=== PATIENT | male | born 1975 | race Caucasian/White ===

== ENCOUNTER 2016-10-20 16:16 | Inpatient (IN) | payer BC, OTHER ==
[~2016-10-20] VITALS: Ht 167.6 cm; Wt 122.5 kg
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
[2016-10-20 16:45] LABS: BASOPHIL # 0.1 K/uL (0.0-0.2); BASOPHIL % 0.4 %; EOSINOPHIL % 0.2 %; HEMATOCRIT 41.4 % (37.0-53.0); HEMOGLOBIN 13.7 g/dL (12.0-17.0); IMMATURE GRANULOCYTE # 0.2 K/uL (0.0-0.3); IMMATURE GRANULOCYTE % 0.7 %; LYMPHOCYTE # 2.4 K/uL (0.8-4.0); LYMPHOCYTE % 10.9 %; MCHC 33.1 gm/dL (32.0-36.5); MCV 87.7 fl (83.0-98.0); MONOCYTE # 1.4 K/uL (0.0-1.0); MONOCYTE % 6.4 %; MPV 11.3 fl (9.4-12.4); NEUTROPHIL # (ANC) 17.8 K/uL (1.4-9.0); NEUTROPHIL % 81.4 %; NRBC % 0 /100WBC (0-0.00); PLATELET COUNT 322 K/uL (150-450); RBC 4.72 M/uL (4.00-6.00); RDW-CV 12.9 % (11.9-14.6)
[2016-10-20 16:47] LABS: WBC 21.8 K/uL (4.0-11.0)
[2016-10-20 16:58] LABS: PROTIME 10.7 SECONDS (9.6-11.1); PTT 23 SECONDS (25-32)
[2016-10-20 17:02] LABS: ALBUMIN 3.9 gm/dL (3.5-5.0); BLOOD UREA NITROGEN 19 mg/dL (6-24); CALCIUM 8.3 mg/dL (8.5-10.5); CHLORIDE 106 mMol/L (96-110); CO2 28 mMol/L (22-32); CREATININE 1.2 mg/dL (0.6-1.3); ESTIMATED GFR (MDRD EQUATION) > 60; PHOSPHORUS 3.5 mg/dL (2.5-4.9); SODIUM 143 mMol/L (135-145)
[2016-10-20 17:10] LABS: ANION GAP 13.5 (10.0-19.0); POTASSIUM 4.5 mMol/L (3.7-5.1)
[2016-10-20 18:04] LABS: BILIRUBIN URINE NEGATIVE (NEGATIVE); BLOOD URINE 150 /UL (NEGATIVE); COLOR URINE YELLOW (YELLOW); GLUCOSE URINE NEGATIVE (NEGATIVE); KETONE URINE NEGATIVE (NEGATIVE); LEUKOCYTES URINE 25 /UL (NEGATIVE); NITRITE URINE NEGATIVE (NEGATIVE); PROTEIN URINE 30 mg/dL (NEGATIVE); SPEC GRAVITY URINE 1.015 (1.003-1.035); TURBIDITY URINE CLEAR (CLEAR); UROBILINOGEN URINE 1 mg/dL (NORMAL)
[2016-10-20 18:13] LABS: EPITHELIAL URINE 0-2 #/HPF (NEGATIVE)
[2016-10-20 18:14] LABS: AMORPHOUS URINE 1+ (NEGATIVE); BACTERIA URINE MODERATE (NEGATIVE); MUCUS URINE 2+ (NEGATIVE)
[2016-10-20] MEDS ORDERED: PRINIVIL OR ZES10 MG PO (20:44)
[2016-10-20] MEDS ORDERED: ASCORBIC ACID500 MG PO (20:45)
[2016-10-20] MEDS ORDERED: IMODIUM2 MG (20:45)
[2016-10-20] MEDS ORDERED: TYLENOL325 MG PO (20:45)
[2016-10-20] MEDS ORDERED: ROBAXIN750 MG PO (20:46)
[2016-10-20] MEDS ORDERED: ZYRTEC10 MG PO (20:46)
[2016-10-20] MEDS ORDERED: PERCOCET 7.5-31 EACH PO (20:47)
[2016-10-20] MEDS ORDERED: TYLENOL PM EX-1 EACH PO (20:48)
[2016-10-21 03:49] LABS: BASOPHIL % 0.2 %; EOSINOPHIL % 0.1 %; HEMATOCRIT 38.4 % (37.0-53.0); HEMOGLOBIN 12.7 g/dL (12.0-17.0); IMMATURE GRANULOCYTE % 0.3 %; LYMPHOCYTE # 1.7 K/uL (0.8-4.0); LYMPHOCYTE % 10.7 %; MCH 28.9 pg (27.0-34.0); MCHC 33.1 gm/dL (32.0-36.5); MCV 87.5 fl (83.0-98.0); MONOCYTE # 1.4 K/uL (0.0-1.0); MONOCYTE % 9.1 %; MPV 11.9 fl (9.4-12.4); NEUTROPHIL # (ANC) 12.6 K/uL (1.4-9.0); NEUTROPHIL % 79.6 %; NRBC % 0 /100WBC (0-0.00); RBC 4.39 M/uL (4.00-6.00); RDW-CV 13.1 % (11.9-14.6); WBC 15.8 K/uL (4.0-11.0)
[2016-10-21 03:52] LABS: PLATELET COUNT 249 K/uL (150-450)
[2016-10-21 04:08] LABS: ALBUMIN 3.5 gm/dL (3.5-5.0); ALK PHOS 46 IU/L (33-138); ALT 70 IU/L (12-78); BLOOD UREA NITROGEN 15 mg/dL (6-24); CALCIUM 8.3 mg/dL (8.5-10.5); CHLORIDE 107 mMol/L (96-110); CO2 24 mMol/L (22-32); CREATININE 0.9 mg/dL (0.6-1.3); ESTIMATED GFR (MDRD EQUATION) > 60; SODIUM 141 mMol/L (135-145); TOTAL BILIRUBIN 0.3 mg/dL (0.0-1.5); TOTAL PROTEIN 6.8 g/dL (6.0-8.4)
[2016-10-21 04:18] LABS: ANION GAP 14.5 (10.0-19.0); AST 87 IU/L (10-40); POTASSIUM 4.5 mMol/L (3.7-5.1)
[2016-10-23 03:47] LABS: BASOPHIL % 0.3 %; EOSINOPHIL % 0.1 %; HEMATOCRIT 35.5 % (37.0-53.0); HEMOGLOBIN 11.6 g/dL (12.0-17.0); IMMATURE GRANULOCYTE % 0.3 %; LYMPHOCYTE # 0.9 K/uL (0.8-4.0); LYMPHOCYTE % 7.8 %; MCH 28.6 pg (27.0-34.0); MCHC 32.7 gm/dL (32.0-36.5); MCV 87.7 fl (83.0-98.0); MONOCYTE # 0.8 K/uL (0.0-1.0); MONOCYTE % 6.9 %; MPV 11.4 fl (9.4-12.4); NEUTROPHIL % 84.6 %; NRBC % 0 /100WBC (0-0.00); PLATELET COUNT 250 K/uL (150-450); RBC 4.05 M/uL (4.00-6.00); RDW-CV 12.8 % (11.9-14.6); WBC 11.9 K/uL (4.0-11.0)
[2016-10-23 04:02] LABS: ALBUMIN 3.2 gm/dL (3.5-5.0); BLOOD UREA NITROGEN 11 mg/dL (6-24); CALCIUM 8.5 mg/dL (8.5-10.5); CHLORIDE 100 mMol/L (96-110); CO2 27 mMol/L (22-32); CREATININE 0.7 mg/dL (0.6-1.3); ESTIMATED GFR (MDRD EQUATION) > 60; PHOSPHORUS 2.2 mg/dL (2.5-4.9); SODIUM 136 mMol/L (135-145)
[2016-10-24 03:29] LABS: BASOPHIL # 0.1 K/uL (0.0-0.2); BASOPHIL % 0.5 %; EOSINOPHIL # 0.3 K/uL (0.0-0.5); EOSINOPHIL % 2.6 %; HEMATOCRIT 34.9 % (37.0-53.0); HEMOGLOBIN 11.5 g/dL (12.0-17.0); IMMATURE GRANULOCYTE # 0.1 K/uL (0.0-0.3); IMMATURE GRANULOCYTE % 0.6 %; LYMPHOCYTE # 1.5 K/uL (0.8-4.0); LYMPHOCYTE % 15.6 %; MCH 28.9 pg (27.0-34.0); MCV 87.7 fl (83.0-98.0); MONOCYTE % 10.4 %; NEUTROPHIL # (ANC) 6.7 K/uL (1.4-9.0); NEUTROPHIL % 70.3 %; NRBC % 0 /100WBC (0-0.00); PLATELET COUNT 271 K/uL (150-450); RBC 3.98 M/uL (4.00-6.00); RDW-CV 12.8 % (11.9-14.6); WBC 9.6 K/uL (4.0-11.0)
[2016-10-24 03:46] LABS: ALK PHOS 44 IU/L (33-138); ALT 53 IU/L (12-78); AST 42 IU/L (10-40); BLOOD UREA NITROGEN 8 mg/dL (6-24); CALCIUM 8.1 mg/dL (8.5-10.5); CHLORIDE 101 mMol/L (96-110); CO2 30 mMol/L (22-32); CREATININE 0.7 mg/dL (0.6-1.3); ESTIMATED GFR (MDRD EQUATION) > 60; SODIUM 137 mMol/L (135-145); TOTAL PROTEIN 6.4 g/dL (6.0-8.4)
[2016-10-24 03:48] LABS: TOTAL BILIRUBIN 0.5 mg/dL (0.0-1.5)
[2016-10-25] MEDS ORDERED: COLACE100 MG PO (11:59)
== END 2016-10-25 14:00 | disposition disaster alternative care site (69) | DRG 89 ==
LOC: GACC 16:16 → GPCU 18:15
PROVIDERS: Emergency Medicine; Physician Assistant; Surgery; ADMIT Surgery
DX: S06.0X9A Concussion with loss of consciousness of unspecified duration, initial encounter (principal); Z68.41 Body mass index [BMI] 40.0-44.9, adult; S22.079A Unspecified fracture of T9-T10 vertebra, initial encounter for closed fracture; S32.019A Unspecified fracture of first lumbar vertebra, initial encounter for closed fracture; S32.029A Unspecified fracture of second lumbar vertebra, initial encounter for closed fracture; S32.039A Unspecified fracture of third lumbar vertebra, initial encounter for closed fracture; S22.32XA Fracture of one rib, left side, initial encounter for closed fracture; S22.31XA Fracture of one rib, right side, initial encounter for closed fracture; S22.089A Unspecified fracture of T11-T12 vertebra, initial encounter for closed fracture; E66.01 Morbid (severe) obesity due to excess calories; I10 Essential (primary) hypertension; R11.0 Nausea; V58.5XXA Driver of pick-up truck or van injured in noncollision transport accident in traffic accident, initial encounter; Y92.410 Unspecified street and highway as the place of occurrence of the external cause; Z88.2 Allergy status to sulfonamides
CPT/HCPCS: G0390; G0480; J1170; J1650; J2405; J2765; J3010; J3480; J7120; L0172; L0174; Q9967